=== PATIENT | female | born 1970 | race African-American/Black ===

== ENCOUNTER 2016-10-22 05:30 | Emergency (ER) | payer OTHER ==
[2016-10-22 06:12] VITALS: BP 145/75; PULSE 77; TEMP 98.7; BMI 41.5
[2016-10-22] MEDS ORDERED: OXYCODONE/APAP 5/325MG COMBO TABLET PO ONE (06:43)
[2016-10-22] MEDS ORDERED: IBUPROFEN 600 MG TABLET (FP) PO ONE ×2 (06:44→06:52)
--- NOTE | 2016-10-22 06:45 | PDOC ---
History of Present Illness - General History Source: Patient, Old Records Exam Limitations: No Limitations - History of Present Illness Initial Comments: 10/22/16 06:49 The patient is a 46 year old female with a significant past medical history of anemia, HTN, gout, and hypercholesterolemia PSHx renal transplant (2000) , who presents to the emergency department today for further evaluation of worsening right foot pain since Saturday. The patient states that she was walking a lot on Saturday for a job interview which lead to her symptoms. The patient reports that she took tylenol at 3 am for relief with no alleviation of symptoms. The patient denies fever, chills, and sweats. The patient denies nausea, vomiting, and diarrhea. The patient denies chest pain, cough, and shortness of breath. <Keon Rodriguez - Last Filed: 10/22/16 06:48> <Alma Yang - Last Filed: 10/23/16 14:24> - General Chief Complaint: Pain Stated Complaint: SWELLING OF RT FOOT Past History <Keon Rodriguez - Last Filed: 10/22/16 06:48> - Past Medical History Anemia: Yes Asthma: No Cancer: No Cardiac Disorders: (pericardial window) CVA: No COPD: No Dementia: No Diabetes: No Disorders: Yes (rt renal transplant) HTN: Yes Hypercholesterolemia: Yes Liver Disease: No Seizures: No Thyroid Disease: No - Surgical History Cardiac Surgery: (pericardial window) Neurologic Surgery: Yes (renal transplant) - Reproductive History (#): 4 Para: 2 Spontaneous : 1 - Psycho/Social/Smoking Cessation Hx Anxiety: No Suicidal Ideation: No Smoking History: Never smoked Have you smoked in the past 12 months: No Number of Cigarettes Smoked Daily: 0 Hx Alcohol Use: No Drug/Substance Use Hx: No Substance Use Type: None Hx Substance Use Treatment: No <Alma Yang - Last Filed: 10/23/16 14:24> - Past Medical History Allergies/Adverse Reactions: Allergies Allergy/AdvReac Type Severity Reaction Status Date / Time codeine Allergy Verified 10/22/16 06:00 Home Medications: Ambulatory Orders Calcitriol 0.5 mcg PO DAILY 10/02/14 Ergocalciferol (Vitamin D2) [Vitamin D] 50,000 unit PO MONTHLY 10/02/14 Lisinopril [Prinivil] 10 mg PO DAILY 10/02/14 Metoprolol Succinate [Toprol XL -] 25 mg PO DAILY 10/02/14 Simvastatin [Zocor -] 20 mg PO HS 10/02/14 Sodium Bicarbonate 650 mg PO QID 10/02/14 Tacrolimus 5 cap PO BID 10/02/14 Acetaminophen [Tylenol .Regular Strength -] 650 mg PO Q4H PRN #0 tablet Docusate Sodium [Colace -] 100 mg PO BID #0 capsule 10/05/14 Ferrous Sulfate [Feosol] 325 mg PO TID #0 tablet 10/05/14 Amlodipine Besylate [Norvasc -] 5 mg PO DAILY 10/22/16 Azathioprine [Imuran] 50 mg PO DAILY 10/22/16 Famotidine [Pepcid -] 20 mg PO DAILY 10/22/16 Furosemide [Lasix -] 20 mg PO DAILY 10/22/16 Review of Systems - Review of Systems Able to Perform ROS?: Yes Comments:: 10/22/16 06:49 GENERAL/CONSTITUTIONAL: No fever or chills. No weakness. HEAD, EYES, EARS, NOSE AND THROAT: No change in vision. No ear pain or discharge. No sore throat. CARDIOVASCULAR: No chest pain or shortness of breath. RESPIRATORY: No cough, wheezing, or hemoptysis. GASTROINTESTINAL: No nausea, vomiting, diarrhea or constipation. GENITOURINARY: No dysuria, frequency, or change in urination. MUSCULOSKELETAL: (+) Right foot pain and swelling. No neck or back pain. SKIN: No rash NEUROLOGIC: No headache, vertigo, loss of consciousness, or change in strength/ sensation. ENDOCRINE: No increased thirst. No abnormal weight change. HEMATOLOGIC/LYMPHATIC: No anemia, easy bleeding, or history of blood clots. ALLERGIC/IMMUNOLOGIC: No hives or skin allergy. <Keon Rodriguez - Last Filed: 10/22/16 06:48> *Physical Exam - Vital Signs Last Vital Signs Temp Pulse Resp BP Pulse Ox 98.7 F 77 17 145/75 100 10/22/16 06:00 10/22/16 06:00 10/22/16 06:00 10/22/16 06:00 10/22/16 06:00 - Physical Exam Comments: 10/22/16 06:49 GENERAL: Awake, alert, and fully oriented, in no acute distress HEAD: No signs of trauma EYES: PERRLA, EOMI, sclera anicteric, conjunctiva clear ENT: Auricles normal inspection, hearing grossly normal, nares patent, oropharynx clear without exudates. Moist mucosa NECK: Normal ROM, supple, no lymphadenopathy, JVD, or masses LUNGS: Breath sounds equal, clear to auscultation bilaterally. No wheezes, and no crackles HEART: Regular rate and rhythm, normal S1 and S2, no murmurs, rubs or gallops ABDOMEN: Soft, nontender, normoactive bowel sounds. No guarding, no rebound. No masses EXTREMITIES: (+) Dorsal right foot edema. Normal range of motion. No clubbing or cyanosis. No cords, erythema. NEUROLOGICAL: Cranial nerves II through XII grossly intact. Normal speech, normal gait SKIN: Warm, Dry, normal turgor, no rashes or lesions noted. <Keon Rodriguez - Last Filed: 10/22/16 06:48> - Vital Signs Last Vital Signs Temp Pulse Resp BP Pulse Ox 98.7 F 77 17 145/75 100 10/22/16 06:00 10/22/16 06:00 10/22/16 06:00 10/22/16 06:00 10/22/16 06:00 <Alma Yang - Last Filed: 10/23/16 14:24> Medical Decision Making - Medical Decision Making 10/22/16 07:10 Pt comes with foot pain that begab 2 days ago Saturday when she walked a great deal. Now with heel pain and dorsum of foot pain. Swelling of the fooot noted. Mild pitting edema. No rash. Percocet given and motrin given. XR pending. Signed out to the day ER doc. <Alma Yang - Last Filed: 10/23/16 14:24> *DC/Admit/Observation/Transfer - Attestations Scribe Attestion: 10/22/16 06:49 Documentation prepared by Keon Rodriguez, acting as medical customer service representative for Alma Yang MD/DO. <Keon Rodriguez - Last Filed: 10/22/16 06:48> <Alma Yang - Last Filed: 10/23/16 14:24> Diagnosis at time of Disposition: Pain in the foot... Improving - Discharge Dispostion Disposition: HOME Condition at time of disposition: Stable - Referrals Referrals: Stan Guajardo MD [Primary Care Provider] - - Patient Instructions Printed Discharge Instructions: DI for Foot Pain Additional Instructions: You may take tylenol or motrin as needed for pain. Elevate the foot to decrease swelling. Return to the ED if your symptoms persist, worsen or new symptoms arise. You may follow-up with a fire and safety helper--call for an appointment. Dr. Akira Lowe [phone].
[2016-10-22] MEDS ORDERED: OXYCODONE/APAP 5/325MG COMBO TABLET ONE (06:52)
--- NOTE | 2016-10-22 10:46 | PDOC ---
*Physical Exam - Vital Signs Last Vital Signs Temp Pulse Resp BP Pulse Ox 98.7 F 77 17 145/75 100 10/22/16 06:00 10/22/16 06:00 10/22/16 06:00 10/22/16 06:00 10/22/16 06:00 ED Treatment Course - Medications Given in the ED: ED Medications Discontinued Medications Generic Name Dose Route Start Last Admin Trade Name Robert PRN Reason Stop Dose Admin Ibuprofen 600 mg 10/22/16 06:44 10/22/16 06:58 Motrin - PO 10/22/16 06:45 600 mg ONCE ONE Administration Oxycodone/Acetaminophen 2 combo 10/22/16 06:43 10/22/16 06:57 Percocet 5/325 - PO 10/22/16 06:44 2 combo ONCE ONE Administration Progress Note - Progress Note Progress Note: The patient was endorsed to me at [address] Serrano pending plain films of the right foot which were read as negative for acute fracture. There is a bunion at the first and TP. I have reevaluated the patient at this time and she is feeling improved. I will give her referral for podiatry and have advised her to return to the emergency department if her symptoms persist, worsen, or new symptoms arise. *DC/Admit/Observation/Transfer Diagnosis at time of Disposition: Pain in the foot... Improving - Discharge Dispostion Disposition: HOME Condition at time of disposition: Stable Admit: No - Referrals Referrals: Stan Guajardo MD [Primary Care Provider] - - Patient Instructions Printed Discharge Instructions: DI for Foot Pain Additional Instructions: You may take tylenol or motrin as needed for pain. Elevate the foot to decrease swelling. Return to the ED if your symptoms persist, worsen or new symptoms arise. You may follow-up with a gang bore operator--call for an appointment. Dr. Akira Lowe [phone]. - Post Discharge Activity
== END 2016-10-22 11:48 | disposition home or self-care (01) ==
LOC: JER 05:30
DX: M79.671 Pain in right foot (principal); I10 Essential (primary) hypertension; E78.00 Pure hypercholesterolemia, unspecified; M10.9 Gout, unspecified; F64.9 Gender identity disorder, unspecified; Z94.0 Kidney transplant status
CPT/HCPCS: 73630-TC-RT; 99282-25

== ENCOUNTER 2017-04-14 16:43 | Emergency (ER) | payer OTHER ==
[2017-04-14 16:47] VITALS: BMI 40.4
--- NOTE | 2017-04-14 17:43 | PDOC ---
History of Present Illness - General Chief Complaint: Weakness Stated Complaint: KIDNEY PROBLEM Time Seen by Provider: 04/14/17 17:16 History Source: Patient Exam Limitations: No Limitations - History of Present Illness Initial Comments: 04/14/17 17:41 46-year-old female presents to the emergency room with generalized fatigue and weakness for the past 2 days. Patient states did receive an IV iron infusion a few days ago by her kettle worker secondary to iron deficiency anemia and worsening kidney function. Patient states in 2000 received a kidney transplant secondary to renal insufficiency which she states went well and was able to come off dialysis patient states now his pending another transplant and fistula placement. Patient denies fever, chills, headache, chest pain, shortness of breath, abdominal pain, change in urine pattern, change in bowel pattern, rash, or lower extremity edema. Timing/Duration: getting worse Severity: moderate Associated Symptoms: reports: weakness Past History - Travel Traveled outside of the country in the last 30 days: No - Past Medical History Allergies/Adverse Reactions: Allergies Allergy/AdvReac Type Severity Reaction Status Date / Time codeine Allergy Verified 04/14/17 16:47 Home Medications: Ambulatory Orders Calcitriol 0.5 mcg PO DAILY 10/02/14 Ergocalciferol (Vitamin D2) [Vitamin D] 50,000 unit PO MONTHLY 10/02/14 Lisinopril [Prinivil] 10 mg PO DAILY 10/02/14 Metoprolol Succinate [Toprol XL -] 25 mg PO DAILY 10/02/14 Simvastatin [Zocor -] 20 mg PO HS 10/02/14 Sodium Bicarbonate 650 mg PO QID 10/02/14 Tacrolimus 5 cap PO BID 10/02/14 Docusate Sodium [Colace -] 100 mg PO BID #0 capsule 10/05/14 Ferrous Sulfate [Feosol] 325 mg PO TID #0 tablet 10/05/14 Amlodipine Besylate [Norvasc -] 5 mg PO DAILY 10/22/16 Azathioprine [Imuran] 50 mg PO DAILY 10/22/16 Furosemide [Lasix -] 20 mg PO DAILY 10/22/16 Anemia: Yes Asthma: No Cancer: No Cardiac Disorders: (pericardial window) CVA: No COPD: No Dementia: No Diabetes: No Disorders: Yes (rt renal transplant 2000) HTN: Yes Hypercholesterolemia: Yes Liver Disease: No Seizures: No Thyroid Disease: No - Surgical History Abdominal Surgery: Yes (EXPL) Cardiac Surgery: Yes (pericardial window) Neurologic Surgery: Yes (renal transplant) - Reproductive History (#): 4 Para: 2 Spontaneous : 1 - Psycho/Social/Smoking Cessation Hx Anxiety: No Suicidal Ideation: No Smoking History: Never smoked Have you smoked in the past 12 months: No Number of Cigarettes Smoked Daily: 0 Hx Alcohol Use: No Drug/Substance Use Hx: No Substance Use Type: None Hx Substance Use Treatment: No Patient Lives Alone: No Lives with/in: spouse/SO Review of Systems - Review of Systems Able to Perform ROS?: No Is the patient limited Nicaraguan proficient: No Constitutional: Yes: Weakness HEENTM: No: Symptoms Reported Respiratory: No: Symptoms reported Cardiac (ROS): No: Symptoms Reported, Lightheadedness ABD/GI: No: Symptoms Reported : No: Symptoms Reported Musculoskeletal: No: Symptoms Reported Integumentary: No: Symptoms Reported Neurological: Yes: Weakness Hematologic/Lymphatic: Yes: Anemia *Physical Exam - Vital Signs Last Vital Signs Temp Pulse Resp BP Pulse Ox 99.0 F 76 20 148/79 99 04/14/17 16:43 04/14/17 16:43 04/14/17 16:43 04/14/17 16:43 04/14/17 16:43 - Physical Exam General Appearance: Yes: Nourished, Appropriately Dressed. No: Apparent Distress HEENT: positive: Pharynx Normal (pale buccal mucosa), Pale Conjunctivae Neck: positive: Supple Respiratory/Chest: positive: Lungs Clear, Normal Breath Sounds. negative: Respiratory Distress, Accessory Muscle Use Cardiovascular: positive: Regular Rhythm, Regular Rate. negative: Murmur Gastrointestinal/Abdominal: positive: Soft. negative: Tenderness Extremity: positive: Normal Capillary Refill. negative: Pedal Edema Neurologic: positive: Motor Strength 5/5 (ambulatory) Heart Score/ECG Review - ECG Intrepretation Rhythm: Regular Rhythm (57 bradycardia LVH. No acute findings) ED Treatment Course - LABORATORY CBC & Chemistry Diagram: 04/14/17 17:43 04/14/17 17:34 Medical Decision Making - Medical Decision Making 04/14/17 17:48 Patient with history of left kidney transplant now r requiring to be placed back on a list due to kidney rejection and increasing BUN and creatinine. Patient states received an iron transfusion a few days ago which she states normally does help her symptoms but states symptoms continue and so decided come to the ER. Patient ordered for type and screen, CBC, comp, magnesium, urinalysis, EKG. 04/14/17 18:57 Laboratory Tests 04/02/16 04/03/16 04/04/16 07:00 07:55 07:35 Hgb 7.6 L D 7.9 L 8.8 L D Hct 24.0 L 26.2 L Plt Count Neutrophils % INR Sodium Potassium Chloride BUN Creatinine Random Glucose Calcium Magnesium AST Blood Type 04/14/17 04/14/17 04/14/17 17:34 17:34 17:34 Hgb Hct Plt Count Neutrophils % INR 1.06 Sodium 140 Potassium 4.6 Chloride 108 H BUN 63 H D Creatinine 6.1 H D Random Glucose 109 H D Calcium 9.3 Magnesium 2.2 D AST 10 L D Blood Type A POSITIVE 04/14/17 17:43 Hgb 8.5 L Hct 25.0 L Plt Count 185 Neutrophils % 58.0 INR Sodium Potassium Chloride BUN Creatinine Random Glucose Calcium Magnesium AST Blood Type I have reviewed labs with patient states that her BUN and creatinine are at baseline. Patient states has responded well the past to 1 unit of blood in since she is symptomatic she is requesting one unit. I will order 1 unit and then the plan is discharge home.
[2017-04-14 17:54] LABS: BASOPHIL 0.4 % (0-2.0); EOSINOPHIL 6.1 % (0-4.5); MCH 30.1 pg (25.7-33.7); MCHC 33.9 g/dl (32.0-36.0); MEAN PLT VOLUME 8.3 fl (7.5-11.1); PLATELET COUNT 185 K/MM3 (134-434); WHITE BLOOD COUNT 6.2 K/mm3 (4.0-10.0)
[2017-04-14 18:06] LABS: INR 1.06 (0.82-1.09); PROTHROMBIN TIME (PATIENT) 11.7 SEC (9.98-11.88)
[2017-04-14 18:26] LABS: ALBUMIN 3.8 g/dl (3.4-5.0); ANION GAP 9 (8-16); CALCIUM 9.3 mg/dL (8.5-10.1); CO2 23 mmol/L (21-32); CREATININE 6.1 mg/dL (0.55-1.02); GLUCOSE,RANDOM 109 mg/dL (74-106); MAGNESIUM 2.2 mg/dL (1.8-2.4); SGOT/AST 10 U/L (15-37); SGPT/ALT 13 U/L (12-78)
[2017-04-14 18:28] LABS: ALK PHOS 62 U/L (45-117); BILIRUBIN,TOTAL 0.5 mg/dL (0.2-1.0); TOT PROT 7.1 g/dl (6.4-8.2)
[2017-04-14 19:01] LABS: URINE APPEARANCE CLEAR; URINE BILIRUBIN NEGATIVE (NEGATIVE); URINE BLOOD NEGATIVE (NEGATIVE); URINE COLOR STRAW; URINE GLUCOSE (UA) NEGATIVE (NEGATIVE); URINE KETONE NEGATIVE (NEGATIVE); URINE LEUK ESTERASE NEGATIVE (NEGATIVE); URINE NITRITE NEGATIVE (NEGATIVE); URINE UROBILINOGEN NEGATIVE mg/dL (0.2-1.0)
[2017-04-14 19:12] LABS: URINE PROTEIN 2+ (NEGATIVE)
[2017-04-14 21:15] VITALS: TEMP 98.1
--- NOTE | 2017-04-14 23:30 | PDOC ---
*Physical Exam - Vital Signs Last Vital Signs Temp Pulse Resp BP Pulse Ox 98.1 F 77 20 130/62 99 04/14/17 21:13 04/14/17 21:13 04/14/17 21:13 04/14/17 21:13 04/14/17 21:13 ED Treatment Course - LABORATORY CBC & Chemistry Diagram: 04/14/17 17:43 04/14/17 17:34 - ADDITIONAL ORDERS Additional order review: Laboratory Results 04/14/17 04/14/17 04/14/17 17:34 17:34 17:34 INR 1.06 Sodium Potassium Chloride Carbon Dioxide Anion Gap BUN Creatinine Creat Clearance w eGFR Random Glucose Calcium Magnesium Total Bilirubin AST ALT Alkaline Phosphatase Total Protein Albumin Urine Color Straw Urine Appearance Clear Urine pH 7.0 Ur Specific [place] 1.015 Urine Protein 2+ H Urine Glucose (UA) Negative Urine Ketones Negative Urine Blood Negative Urine Nitrite Negative Urine Bilirubin Negative Urine Urobilinogen Negative Ur Leukocyte Esterase Negative Blood Type A POSITIVE Antibody Screen Negative Crossmatch See Detail 04/14/17 17:34 INR Sodium 140 Potassium 4.6 Chloride 108 H Carbon Dioxide 23 D Anion Gap 9 BUN 63 H D Creatinine 6.1 H D Creat Clearance w eGFR 7.47 Random Glucose 109 H D Calcium 9.3 Magnesium 2.2 D Total Bilirubin 0.5 D AST 10 L D ALT 13 D Alkaline Phosphatase 62 D Total Protein 7.1 D Albumin 3.8 Urine Color Urine Appearance Urine pH Ur Specific [place] Urine Protein Urine Glucose (UA) Urine Ketones Urine Blood Urine Nitrite Urine Bilirubin Urine Urobilinogen Ur Leukocyte Esterase Blood Type Antibody Screen Crossmatch 04/14/17 17:43 RBC 2.81 L MCV 89.0 MCHC 33.9 RDW 15.0 MPV 8.3 Neutrophils % 58.0 Lymphocytes % 25.3 Monocytes % 10.2 Eosinophils % 6.1 H D Basophils % 0.4 Medical Decision Making - Medical Decision Making 04/14/17 Patient was endorsed to me to spoke when the blood transfusion was completed. Patient was seen and evaluated awaiting transfusion. 23:26. Patient was transfused 1 unit of PRBC and is feeling better. We'll discharge her with instructions to follow with her PMD I discussed the physical exam findings, ancillary test results and final diagnoses with the patient. I answered all of the patient's questions. The patient was satisfied with the care received and felt comfortable with the discharge plan and treatment plan. The Patient agrees to follow up with the primary care physician within 24-72 hours. *DC/Admit/Observation/Transfer Diagnosis at time of Disposition: Weakness - Discharge Dispostion Disposition: HOME Condition at time of disposition: Stable - Referrals Referrals: Stan Guajardo MD [Primary Care Provider] - - Patient Instructions Additional Instructions: Your Discharge Instructions: You must call primary care physician within 24 hours to arrange follow-up. Return to the Emergency Department with any new, persistent or worsening symptoms, for fever, chills, SOB, dizziness or any other concerning changes that may occur. - Post Discharge Activity Work/School Note: Back to Work
[2017-04-14 23:40] VITALS: BP 119/74; PULSE 61
--- NOTE | 2017-04-15 19:02 | EKG ---
Test Reason : Blood Pressure : / mmHG Vent. Rate : 057 BPM Atrial Rate : 057 BPM P-R Int : 160 ms QRS Dur : 090 ms QT Int : 452 ms P-R-T Axes : 030 003 011 degrees QTc Int : 439 ms SINUS BRADYCARDIA MODERATE VOLTAGE CRITERIA FOR LVH, MAY BE NORMAL VARIANT NONSPECIFIC T WAVE ABNORMALITY ABNORMAL ECG WHEN COMPARED WITH ECG OF 03-OCT-2014 10:41, NONSPECIFIC T WAVE ABNORMALITY NOW EVIDENT IN ANTERIOR LEADS Confirmed by CAL MANCINI MD ([id number]) on 04/15/2017 7:01:44 PM Referred By: Confirmed By:CAL MANCINI MD
== END 2017-04-14 23:52 | disposition home or self-care (01) ==
LOC: JER 16:43
PROC: 30233N1 Transfusion of Nonautologous Red Blood Cells into Peripheral Vein, Percutaneous Approach (ICD-10-PCS; principal; 2017-04-14)
DX: R53.1 Weakness (principal); D50.8 Other iron deficiency anemias; N28.89 Other specified disorders of kidney and ureter; Z94.0 Kidney transplant status
CPT/HCPCS: 36415; 36430; 80053; 81003; 81015; 83735; 85025; 85610; 86850; 86900; 86901; 86922; 93005; 93010; 99285-25; P9038; P9058